=== PATIENT | female | born 1950 | race Caucasian/White ===

== ENCOUNTER 2018-05-05 13:17 | Emergency (ER) | payer MEDICARE, OTHER ==
[~2018-05-05] VITALS: Ht 165.1 cm; Wt 149.7 kg
[~2018-05-05 13:17] MED LIST: ACCUNEB SO1.25 MG/1 INH; ADVAIR 250-501 EACH IH; ASPIR 8181 MG PO; AVELOX 400 MG400 MG PO; CELEXA20 MG PO; CLOTRIMAZOLE 1%15 G1 TOP; DOXYCYCLINE 10100 M1 PO; IPRATROPIUM BRO15 ML NASAL; LASIX 40 MG TAB40 M2 PO; LASIX 80 MG TAB80 M1 PO; LASIX 80 MG TAB80 MG PO; LEVAQUIN 500 M500 M1 PO; LEXAPRO20 MG PO; LODINE PO; LODINE400 M1 PO; LODINE500 MG PO; METFORMIN 500500 MG PO; METFORMIN HCL500 MG PO; NEURONTIN 300300 M1 PO; NICOTINE TRANSDE7 MG TD; PREDNISONE 10 M10 M1 PO; PREDNISONE 20 M20 MG PO; PREDNISONE 5 MG5 M1 PO; PRINIVIL20 MG PO; PROAIR HFA8.5 GM INH; PROTONIX 20 MG20 M1 PO; SINGULAIR 10 MG10 M1 PO; SYMBICORT80 MCG/4.1 INH; TROSPIUM CHLORI60 MG PO; VIBRAMYCIN 100100 MG PO
[2018-05-05] MEDS ORDERED: LODINE XL500 MG PO (13:29)
[2018-05-05] MEDS ORDERED: BENTYL 10 MG CA10 M1 PO (13:31)
[2018-05-05] MEDS ORDERED: PREDNISONE 5 MG5 M1 PO (13:32)
[2018-05-05] MEDS ORDERED: CRANBERRY500 MG PO (13:33)
[2018-05-05] MEDS ORDERED: MYRBETRIQ50 MG PO (13:34)
[2018-05-05] MEDS ORDERED: NEURONTIN 300300 M1 PO (13:36)
[2018-05-05] MEDS ORDERED: CLARITIN10 MG PO (13:36)
[2018-05-05] MEDS ORDERED: MELATONIN5 M1 PO (13:37)
[2018-05-05] MEDS ORDERED: SYMBICORT160 MCG/4. INH (13:39)
[2018-05-05] MEDS ORDERED: ASPERCREME1 EACH TOP (13:40)
[2018-05-05] MEDS ORDERED: TRIAMCINOLONE A80 G2 TOP (13:40)
[2018-05-05] MEDS ORDERED: FLEXERIL PO (13:41)
[2018-05-05] MEDS ORDERED: PROAIR HFA8.5 GM INH (13:42)
[2018-05-05] MEDS ORDERED: DULCOLAX5 MG PO (13:43)
[2018-05-05] MEDS ORDERED: COLACE100 MG PO (13:43)
[2018-05-05] MEDS ORDERED: ACCUNEB SO1.25 MG/1 INH (13:44)
[2018-05-05] MEDS ORDERED: TYLENOL325 MG PO (13:45)
[2018-05-05] MEDS ORDERED: NORCO 5-325 TA1 EAC1 PO (15:04)
[2018-05-05 15:15] VITALS: BP 134/96
== END 2018-05-05 15:17 | disposition home or self-care (01) ==
LOC: M.ERS 13:17
DX: M25.561 Pain in right knee (principal); M25.562 Pain in left knee; I50.9 Heart failure, unspecified; J45.909 Unspecified asthma, uncomplicated; M19.90 Unspecified osteoarthritis, unspecified site; I73.9 Peripheral vascular disease, unspecified; G89.29 Other chronic pain; M54.9 Dorsalgia, unspecified; G47.30 Sleep apnea, unspecified; E66.9 Obesity, unspecified; Z68.43 Body mass index [BMI] 50.0-59.9, adult; Z88.6 Allergy status to analgesic agent; Z88.0 Allergy status to penicillin; Z91.041 Radiographic dye allergy status; Z88.2 Allergy status to sulfonamides; Z88.8 Allergy status to other drugs, medicaments and biological substances; Z90.710 Acquired absence of both cervix and uterus; Z90.49 Acquired absence of other specified parts of digestive tract; Z85.118 Personal history of other malignant neoplasm of bronchus and lung

== ENCOUNTER 2018-10-20 16:36 | Inpatient (IN) | payer OTHER ==
[~2018-10-20] VITALS: Ht 162.6 cm; Wt 165.6 kg
[2018-10-20 16:36] VITALS: BP 147/79
[~2018-10-20 16:36] MED LIST changes: +ASPERCREME1 EACH TOP; +BENTYL 10 MG CA10 M1 PO; +CLARITIN10 MG PO; +COLACE100 MG PO; +CRANBERRY500 MG PO; +DULCOLAX5 MG PO; +FLEXERIL PO; +LODINE XL500 MG PO; +MELATONIN5 M1 PO; +MYRBETRIQ50 MG PO; +NORCO 5-325 TA1 EAC1 PO; +SYMBICORT160 MCG/4. INH; +TRIAMCINOLONE A80 G2 TOP; +TYLENOL325 MG PO
[2018-10-20 17:19] LABS: URINE BILIRUBIN NEGATIVE (Negative); URINE BLOOD 1+ (Negative); URINE CLARITY SL CLOUDY; URINE COLOR YELLOW; URINE GLUCOSE-RANDOM NEGATIVE (Negative); URINE KETONES NEGATIVE (Negative); URINE LEUKOCYTES-REFLEX 3+ (Negative); URINE NITRITE-REFLEX POSITIVE (Negative); URINE PROTEIN NEGATIVE (Negative); URINE SPECIFIC GRAVITY <= 1.005 (1.005-1.030); URINE UROBILINOGEN 0.2 E.U./dl (0.2-1.0)
[2018-10-20 17:26] LABS: BE 3.5 mmol/L (-2 to +3); PCO2 40.9 mmHg (35.0-45.0); PO2 106.3 mmHg (75.0-100.0)
[2018-10-20 17:30] LABS: MUCUS None Seen strn/LPF (None Seen); SQUAMOUS 0-3 Few /LPF (0-3)
[2018-10-20 17:31] LABS: BACTERIA-REFLEX 1-9 Few /HPF (None Seen); WBC CLUMPS Few (None Seen)
[2018-10-20 17:32] LABS: CASTS None Seen /LPF (None Seen); CRYSTALS None Seen /LPF (None Seen); URINE RBC 0-2 Rare /HPF (0-2)
[2018-10-20 17:54] LABS: HEMATOCRIT 34.1 % (37.0-47.0); HEMOGLOBIN 11.4 gm/dL (12.0-15.0); MCH 31.2 pg (26.0-34.0); MCHC 33.4 g/dL (28.0-37.0); MCV 93.4 fL (80.0-100.0); NUCLEATED RBCS 0 /100WBC; PLATELET COUNT* 165 thou/uL (150-400); RBC 3.65 mil/uL (4.20-5.00); RDW-CV 17.4 % (10.5-14.5); WBC 6.4 thou/uL (4.0-11.0)
[2018-10-20 18:12] LABS: ALBUMIN 3.2 g/dL (3.4-5.0); ALKALINE PHOSPHATASE 51 U/L (46-116); ANION GAP 2 mmol/L (7-16); BUN 23 mg/dL (7-18); CALCIUM 8.5 mg/dL (8.5-10.1); CHLORIDE 101 mmol/L (98-107); CO2 34 mmol/L (21-32); CREATININE 1.5 mg/dL (0.6-1.3); GLUCOSE 112 mg/dL (70-99); POTASSIUM 4.1 mmol/L (3.5-5.1); SGOT 15 U/L (15-37); SGPT 22 U/L (30-65); SODIUM 137 mmol/L (136-145); TOTAL BILIRUBIN 0.8 mg/dL (<0.1-1.0); TOTAL PROTEIN 6.8 g/dL (6.4-8.2); TROPONIN-I LEVEL <0.06 ng/mL (<0.06)
[2018-10-20 18:26] LABS: ABSOLUTE EOSINOPHILS 0.1 thou/uL (0.0-0.7); ABSOLUTE LYMPHOCYTES 0.4 thou/uL (0.8-5.3); ABSOLUTE MONOCYTES 0.6 thou/uL (0.0-1.2); ABSOLUTE NEUTROPHILS 5.4 thou/uL (1.6-8.1)
[2018-10-20 18:27] LABS: PLATELET ESTIMATE ADEQUATE
[2018-10-20 18:28] LABS: ANISOCYTOSIS 1+; POLYCHROMASIA Occasional
[2018-10-20 20:48] VITALS: BP 129/69
[2018-10-20 22:00] VITALS: BP 131/76
[2018-10-20] MEDS ORDERED: CARAFATE 1 GM TA1 G1 PO (22:58)
[2018-10-20] MEDS ORDERED: AXID300 MG PO (22:59)
[2018-10-21] VITALS: BP 118/61
--- NOTE | 2018-10-21 03:55 | NUR ---
RECEIVED REPORT FROM ELKE TEE. PT TRANSFERRED TO 228. PT A&OX4. VSS. ADMISSION HISTORY & PHYSICAL ASSESSMENT COMPLETED AND CHARTED. CRITICAL CARE REGISTERED NURSE IN PLACE. FALL FORM SIGNED. ORIENTED TO ROOM & CALL LIGHT. PT ON RA/ CPAP WHEN SLEEPING WITH 95% O2 SAT. PT TRACING SR ON TELE. PT UPSTANDBY TO RESTROOM. CALL LIGHT WITHIN REACH.
[2018-10-21 04:56] VITALS: BP 122/52
[2018-10-21 08:00] VITALS: BP 107/55
[2018-10-21 13:04] VITALS: BP 98/49
--- NOTE | 2018-10-21 13:46 | NUR ---
ATTEMPTED TO MEET WITH PT X2 TODAY. WILL TRY AGAIN LATER
--- NOTE | 2018-10-21 15:13 | NUR ---
MET WITH PT TO DISCUSS HOME SITUATION/DC PLANNING. PT LIVES ALONE, BUT CURRENTLY HER GRANDSON, HIS GF AND 2 YOUNG CHILDREN ARE LIVING WITH HER. PT IS NORMALLY INDEPENDENT AND ACTIVE. SHE USES CPAP, GRAB BARS, WALKER PRN, NEBULIZER AND SHOWER BENCH. PT HAS HAD HH WITH [facility] IN PAST BUT DOESN'T WANT HH AT THIS TIME. SHE PLANS TO RETURN TO HER P/T JOB AT A HOME. PT DENIES NEEDS AT THIS TIME. SON/RADHA JONES IS DPOA. WILL FOLLOW
[2018-10-21 16:00] VITALS: BP 113/63
--- NOTE | 2018-10-21 17:07 | EKG ---
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 : 1950 Requested By: Zaynab Hedrick Order Number: [id number] MD: Darien Arreola Measurements Intervals [place]iska Rate: 77 P: 23 WV: 133 QRS: 39 QRSD: 81 T: 107 QT: 459 QTc: 520 Interpretive Statements Sinus rhythm Nonspecific T abnrm, anterolateral leads Prolonged QT interval Compared to ECG 09/02/2016 14:40:37 Prolonged QT interval now present Electronically Signed On 10-21-2018 17:07:18 CDT by Darien Arreola [email or web address] <ELECTRONICALLY SIGNED> By: Darien Arreola MD, FACC 10/21/18 1707 1735 1735 Darien Arreola MD, FAC /EPI
[2018-10-22] VITALS: BP 93/52
[2018-10-22 04:00] VITALS: BP 89/60
[2018-10-22 05:56] LABS: ABSOLUTE EOSINOPHILS 0.1 thou/uL (0.0-0.7); ABSOLUTE LYMPHOCYTES 0.5 thou/uL (0.8-5.3); ABSOLUTE MONOCYTES 0.6 thou/uL (0.0-1.2); ABSOLUTE NEUTROPHILS 2.3 thou/uL (1.6-8.1); BASOPHILS 1.3 %; EOSINOPHILS 1.4 %; HEMATOCRIT 30.9 % (37.0-47.0); HEMOGLOBIN 10.3 gm/dL (12.0-15.0); LYMPHOCYTES 13.7 %; MCH 31.5 pg (26.0-34.0); MCHC 33.4 g/dL (28.0-37.0); MCV 94.5 fL (80.0-100.0); MONOCYTES 17.6 %; MPV 8.7 fl. (7.2-11.1); NUCLEATED RBCS 0 /100WBC; PLATELET COUNT* 153 thou/uL (150-400); RBC 3.27 mil/uL (4.20-5.00); RDW-CV 17.2 % (10.5-14.5); WBC 3.6 thou/uL (4.0-11.0)
[2018-10-22 06:03] LABS: CALCIUM 8.4 mg/dL (8.5-10.1); CREATININE 1.5 mg/dL (0.6-1.3); MAGNESIUM 2.1 mg/dL (1.8-2.4)
[2018-10-22 08:00] VITALS: BP 105/69
--- NOTE | 2018-10-22 09:58 | NUR ---
PT IS A+O X4. DENIES CP. NO SOA REPORTED OR OBSERVED. PT DID REPORT HEAD AND NECK PAIN. LATER TOWARDS END OF SHIFT PT STATED HER HEAD PROBABLY HURT FROM WHEN SHE "FELL ON October PRIOR TO GOING TO [facility] FOR HER PE'S." NO PALPABLE HEMATOMAS WHERE PT INDICATED PAIN BUT DID REPORT SOME TENDERENESS. PRN NORCO EFFECTIVE. ENCOURAGED PT TO REPORT HEAD PAIN (AND FALL) TO . ALSO NOTIFIED DAY RN. CALL LIGHT IN REACH. HOURLY ROUNDING FOR SAFETY.
--- NOTE | 2018-10-22 11:33 | NUR ---
CONTINUE TO FOLLOW, DISCUSSED DC PLAN WITH PT. SHE IS OPEN TO HH, OFFERED SNF PLACEMENT. SHE THEN GOT ON HER PHONE TO TALK WITH HER SON IN [place], WAS GIVING HIM PHONE NUMBERS OF DRS AT [employer]. PT VOICED SHE WAS HAVING TREMORS, 'JERKING' AND THEN MENTIONED HER HEAD WHERE SHE HIT IT ON A DOOR AT [employer]. UPDATED DR MARTINEZ ON PT'S VOICED CONCERNS. HE STATED HE WOULD SPEAK WITH PT AGAIN
[2018-10-22 12:00] VITALS: BP 104/55
[2018-10-22] MEDS ORDERED: XARELTO15 MG PO (12:25)
--- NOTE | 2018-10-22 13:48 | 2DMMODE ---
[place] [address] 2 D/M-MODE ECHOCARDIOGRAM Name: MILES JONES Room: [address] IN [facility]#: [id number] Admission: 10/20/18 Attend Phys: Kiersten Frank Discharge: Date of : 52 Date of Service: 10/22/18 1348 Report #: [id number] THIS REPORT FOR: //name// APPROVED REPORT Study performed: 10/22/2018 09:57:37 EXAM: Comprehensive 2D, Doppler, and color-flow Echocardiogram Patient Location: In-Patient Room #: [facility] Status: routine BSA: 2.51 HR: 70 bpm BP: 89/60 mmHg Rhythm: NSR Other Information Study Quality: Good Indications Pulmonary Embolism Dyspnea lung cancer 2D Dimensions IVSd: 11.79 (7-11mm) LVOT Diam: 19.83 (18-24mm) LVDd: 58.00 mm PWd: 13.72 (7-11mm) Ascending Ao: 32.39 (22-36mm) LVDs: 30.95 (25-40mm) Aortic Root: 32.79 mm Volumes Left Atrial Volume (Systole) LA ESV Index: 21.10 mL/m2 Aortic Valve AoV Peak Fred.: 1.73 m/s AO Peak Gr.: 11.96 mmHg LVOT Max P.00 mmHg AO Mean Gr.: 5.97 mmHg LVOT Mean P.91 mmHg LVOT Max V: 1.32 m/s AO V2 VTI: 31.20 cm LVOT Mean V: 0.76 m/s FLORY (VTI): 2.63 cm2 LVOT V1 VTI: 26.60 cm Mitral Valve E/A Ratio: 1.05 [place] [address] 2 D/M-MODE ECHOCARDIOGRAM Name: MILES JONES Room: [address] IN .R.#: [id number] Admission: 10/20/18 Attend Phys: Kiersten Frank Discharge: Date of : 52 Date of Service: 10/22/18 1348 Report #: [id number] MV Decel. Time: 223.77 ms MV E Max Fred.: 0.61 m/s MV PHT: 64.89 ms MVA (PHT): 3.39 cm2 TDI E/Lateral E': 7.63 E/Medial E': 6.78 Medial E' Fred.: 0.09 m/s Lateral E' Fred.: 0.08 m/s Pulmonary Valve PV Peak Fred.: 1.18 m/s PV Peak Gr.: 5.54 mmHg Left Ventricle The left ventricle is normal size. There is normal LV segmental wall motion. There is normal left ventricular wall thickness. Left ventricular systolic function is normal. The left ventricular ejection fraction is within the normal range. LVEF is 60%. The left ventricular diastolic function is normal. Right Ventricle The right ventricle is normal size. The right ventricular systolic function is normal. Atria The left atrium size is normal. The right atrium size is normal. Aortic Valve The aortic valve is normal in structure. No aortic regurgitation is present. There is no aortic valvular stenosis. Mitral Valve The mitral valve is normal in structure. There is no mitral valve regurgitation noted. No evidence of mitral valve stenosis. Tricuspid Valve The tricuspid valve is normal in structure. Unable to assess PA pressure. Trace tricuspid regurgitation. Pulmonic Valve The pulmonary valve is normal in structure. There is no pulmonic valvular regurgitation. Great Vessels The aortic root is normal in size. IVC [place] [address] 2 D/M-MODE ECHOCARDIOGRAM Name: MILES JONES Room: [address] IN [facility]#: [id number] Admission: 10/20/18 Attend Phys: Kiersten Frank Discharge: Date of : 52 Date of Service: 10/22/18 1348 Report #: [id number] collapses >50% with inspiration. Pericardium There is no pericardial effusion. <Conclusion> The left ventricle is normal size. There is normal left ventricular wall thickness. Left ventricular systolic function is normal. The left ventricular ejection fraction is within the normal range. LVEF is 60%. The left ventricular diastolic function is normal. The left atrium size is normal. The aortic valve is normal in structure. The mitral valve is normal in structure. The tricuspid valve is normal in structure. IVC is normal in size and collapses >50% with inspiration. There is no pericardial effusion. There is normal LV segmental wall motion. <ELECTRONICALLY SIGNED> By: Noble Soares MD, FACC 10/22/18 1348 1348 1348 Noble Soares MD, FACC /INF
--- NOTE | 2018-10-22 14:07 | NUR ---
ASSUMED CARE OF PATIENT THIS AM AT O730. PATIENT IS ALERT AND ORIENTED X 4. SHE INITALLY DENIED PAIN THIS AM BUT LATER C/O BACK PAIN. TELE SHOWS NSR. PATIENT HAS BEEN UP TO THE CHAIR AND TO THE BATHROOM WITH STANDBY ASSIST. DR IN TO ROUND AND PLANS TO DISCHARGE TODAY. PATIENT'S SON CALLED AND WANTED PATIENT TO BE TRANSFERRED TO SNF FOR STRENGHTENING. ORDERS WRITTEN BY . PATIENT MEDICATED THIS AFTERNOON FOR C/O BACK PAIN. SHE IS RESTING AT THIS TIME IN BED CALL LIGHT IS IN REACH. NO FALLS OR INJURY.
[2018-10-22 16:00] VITALS: BP 138/75
--- NOTE | 2018-10-22 19:32 | NUR ---
PATIENT CONTINUES UP IN THE CHAIR THIS EVENING.
[2018-10-22 20:00] VITALS: BP 105/67
[2018-10-23 01:38] VITALS: BP 100/50
[2018-10-23 04:00] VITALS: BP 113/62
--- NOTE | 2018-10-23 04:01 | NUR ---
ASSUMED PT CARE AT 1930. ASSESSMENT COMPLETED CHARTED. ABLE TO MAKE NEEDS KNOWN. UP WITH WALKER AND STANDBY ASSIST. C/O HEADACHE AND BACK ACHE AND GAVE PRN PAIN MEDICATION PER P.O. PT RESTING IN BED ON HOME CPAP. WILL CONTINUE TO MONITOR.
[2018-10-23 08:00] VITALS: BP 140/77
[2018-10-23 12:00] VITALS: BP 110/55
[2018-10-23] MEDS ORDERED: AUGMENTIN 875-1 EACH PO (12:45)
[2018-10-23] MEDS ORDERED: CYMBALTA30 MG PO (12:47)
[2018-10-23] MEDS ORDERED: NORCO 5-325 TA1 EAC1 PO (12:47)
--- NOTE | 2018-10-23 12:48 | NUR ---
ANA CALLED FROM PHARMACY RE AUGMENTIN ORDER SPOKE [facility] PT VERIFIED SHE WANTS TO TRY IT. CALLED BACK PHARMACY SPOKE WITH [facility].
[2018-10-23 13:10] VITALS: BP 110/55
--- NOTE | 2018-10-23 14:12 | NUR ---
ASSUMED CARE OF PT THIS AM ASSESSED AND DOCUMENTED. SEE CHART. PT HAS BEEN ON CARDIAC MONITER TRACING SR. SHE HAS BEEN A&O WITH NO C/O PAIN. PT HAS BEEN ON FALL PRECAUTIONS PER FACILITY PROTOCOL. EDUCATION GIVEN ON DEMAND. PT HAS HAD NO S OR SX OF ADVERSE REACTION TO ABT. PT HAS BEEN D/C'D TO [facility] FOR REHAB. D/C'D IV AND CARDIAC MONITER.
--- NOTE | 2018-10-23 14:19 | NUR ---
SHIP RUNNER RECIEVED A CALL FROM [facility] WITH ADMISSIONS AT [facility] AND SHE INFORMS THAT THE FACILITY HAS RECIEVED INSURANCE AUTH FOR THE PATIENT, AND WILL PROVIDE TRANSPORT AT 1530 TO 1600. D/C INLAYER INFORMED THE PATIENT OF THIS AND SHE IS IN AGREEMENT. D/C INLAYER INFORMED THE RN IN-CHARGE OF THE PATIENT OF THE PATIENT'S TIME OF TRANSPORT AND WHERE TO CALL REPORT. RN IN AGREEMENT. CM WILL REMAIN AVAILABLE TO ASSIST AND FOLLOW NEEDED.
--- NOTE | 2018-10-23 16:58 | NUR ---
PT LEFT FACILITY WITH [facility] SPARE FIXER. ALL BELONGINGS PACKED UP AND LEFT WITH PT ACCOMPANIED BY STAFF AND SPARE FIXER.
== END 2018-10-23 17:00 | DRG 175 ==
LOC: M.ERS 16:36 → M.TBA-ER 18:20 → M.2W 18:20
PROVIDERS: Family Medicine; Personal Emergency Response Attendant; ADMIT Internal Medicine
DX: I26.99 Other pulmonary embolism without acute cor pulmonale (principal); J96.01 Acute respiratory failure with hypoxia; I50.30 Unspecified diastolic (congestive) heart failure; C34.01 Malignant neoplasm of right main bronchus; Z68.44 Body mass index [BMI] 60.0-69.9, adult; I13.0 Hypertensive heart and chronic kidney disease with heart failure and stage 1 through stage 4 chronic kidney disease, or unspecified chronic kidney disease; J45.909 Unspecified asthma, uncomplicated; M19.90 Unspecified osteoarthritis, unspecified site; I73.9 Peripheral vascular disease, unspecified; G89.29 Other chronic pain; M54.9 Dorsalgia, unspecified; I25.10 Atherosclerotic heart disease of native coronary artery without angina pectoris; J44.9 Chronic obstructive pulmonary disease, unspecified; N18.3 Chronic kidney disease, stage 3 (moderate); E66.01 Morbid (severe) obesity due to excess calories; Z16.24 Resistance to multiple antibiotics; Z88.2 Allergy status to sulfonamides; Z88.8 Allergy status to other drugs, medicaments and biological substances; Z88.6 Allergy status to analgesic agent; Z90.710 Acquired absence of both cervix and uterus; Z90.49 Acquired absence of other specified parts of digestive tract; Z79.52 Long term (current) use of systemic steroids; Z91.041 Radiographic dye allergy status; Z88.0 Allergy status to penicillin; Z87.891 Personal history of nicotine dependence; Z79.82 Long term (current) use of aspirin; Z79.899 Other long term (current) drug therapy